=== PATIENT | female | born 1955 | race Caucasian/White ===

== ENCOUNTER → 2018-04-05 | Outpatient (CLI) | payer BC ==
[~2018-04-05] MED LIST: BP medication; Detrol; PRINVIL
== END ==
LOC: MC.RAD 15:40
DX: Z12.31 Encounter for screening mammogram for malignant neoplasm of breast (principal)

== ENCOUNTER → 2020-04-26 | Outpatient (CLI) | payer BC | LOC: MC.RAD 13:15 | DX: Z12.31 Encounter for screening mammogram for malignant neoplasm of breast (principal) ==

== ENCOUNTER 2020-05-24 09:45 | Day surgery (SDC) | payer BC ==
[~2020-05-24] VITALS: Ht 157.5 cm; Wt 104.6 kg
[2020-05-24] MEDS ORDERED: COZAAR100 MG PO (10:30)
[2020-05-24] MEDS ORDERED: DYAZIDE 25 MG-31 CAP PO (10:31)
[2020-05-24] MEDS ORDERED: AMOXICILLIN 8751 TAB PO (10:32)
[2020-05-24 11:37] VITALS: BP 147/77; PULSE 103; TEMP 98
[2020-05-24 12:30] VITALS: BP 140/62; PULSE 62; TEMP 97.5
--- NOTE | 2020-05-24 12:30 | NUR ---
TO RM 5 PER CART FROM ENDOSCOPY FOLLOWING AN ERCP. AMBULATED TO RECLINER WITH MINIMAL ASSIST. RECEIVED WATER AND TAKING SIPS. DENIES PAIN OR DISCOMFORT AT CURRENT TIME.
[2020-05-24 12:45] VITALS: BP 129/70; PULSE 56
--- NOTE | 2020-05-24 12:45 | NUR ---
REQUESTED SOMETHING WARM TO DRINK. PATIENT RECEIVED WARM TEA. PATIENT TAKING SIPS. DENIES ANY PAIN OR DISCOMFORT AT THIS TIME.
[2020-05-24 13:00] VITALS: BP 132/68; PULSE 56
--- NOTE | 2020-05-24 13:00 | NUR ---
PATIENT SEEMS TO BE CONTENT SIPPING ON HER WARM TEA.
[2020-05-24 13:15] VITALS: BP 142/72; PULSE 51
--- NOTE | 2020-05-24 13:15 | NUR ---
DR CRAFT INTO TALK WITH PATIENT OK'D TO BE DISCHARGED ANYTIME.
--- NOTE | 2020-05-24 13:30 | NUR ---
PATIENT CALLED BROTHER FOR RIDE HOME. RECEIVED DISCHARGE INSTRUCTIONS AND VERBALIZED UNDERSTANDING. DISCONTINUED IV AND INT- CATHETER INTACT.
--- NOTE | 2020-05-24 14:14 | NUR ---
DISCHARGED PER WC BY NURSING STAFF TO PRIVATE CAR IN CARE OF BROTHER HI.
[2020-05-28] MEDS ORDERED: PROBIOTIC FORMU1 CAP PO (13:20)
[2020-05-28] MEDS ORDERED: NATURAL ST. JO300 MG PO (13:20)
[2020-05-28] MEDS ORDERED: OMEGA-3 1000 MG1 CAP PO (13:20)
[2020-05-28] MEDS ORDERED: VITAMIN B COMPL IJ (13:21)
[2020-05-28] MEDS ORDERED: VITAMINC1000TA PO (13:21)
[2020-05-28] MEDS ORDERED: NATURAL ODORLE400 MG PO (13:23)
[2020-05-28] MEDS ORDERED: LIQUID CALCIUM1 SG3 PO (13:23)
[2020-05-28] MEDS ORDERED: VITAMIN D31000 I1 PO (13:23)
[2020-05-28] MEDS ORDERED: ASPIRIN E.C. 8181 MG PO (13:24)
[2020-05-28] MEDS ORDERED: GLUCOSAMINE & C1 CA2 PO (13:24)
[2020-05-28] MEDS ORDERED: PERCOCET 325 MG1 TA2 PO (17:01)
[2020-05-28] MEDS ORDERED: MOTRIN 600600 MG/TAB PO (17:01)
== END 2020-05-24 14:38 | disposition home or self-care (01) ==
LOC: SDCO 09:45
DX: K80.50 Calculus of bile duct without cholangitis or cholecystitis without obstruction (principal); K21.9 Gastro-esophageal reflux disease without esophagitis; I10 Essential (primary) hypertension; F41.9 Anxiety disorder, unspecified; Z20.828 Contact with and (suspected) exposure to other viral communicable diseases; M17.10 Unilateral primary osteoarthritis, unspecified knee; E66.01 Morbid (severe) obesity due to excess calories; Z68.41 Body mass index [BMI] 40.0-44.9, adult
CPT/HCPCS: C1769; J2704; J3010; J7030

== ENCOUNTER → 2021-06-17 | Outpatient (CLI) | payer BC ==
[~2021-06-17] MED LIST changes: +AMOXICILLIN 8751 TAB PO; +ASPIRIN E.C. 8181 MG PO; +COZAAR100 MG PO; +DYAZIDE 25 MG-31 CAP PO; +GLUCOSAMINE & C1 CA2 PO; +LIQUID CALCIUM1 SG3 PO; +MOTRIN 600600 MG/TAB PO; +NATURAL ODORLE400 MG PO; +NATURAL ST. JO300 MG PO; +OMEGA-3 1000 MG1 CAP PO; +PERCOCET 325 MG1 TA2 PO; +PROBIOTIC FORMU1 CAP PO; +VITAMIN B COMPL IJ; +VITAMIN D31000 I1 PO; +VITAMINC1000TA PO; +ZOFRAN ODT4 MG PO
== END ==
LOC: MC.RAD 16:00
DX: Z12.31 Encounter for screening mammogram for malignant neoplasm of breast (principal)

== ENCOUNTER → 2023-08-11 | Outpatient (CLI) | payer BC ==
[~2023-08-11] MED LIST changes: +PREDNISONE20 MG PO; +TESSALON PERLE200 MG PO
== END ==
LOC: MC.RAD 08:20
DX: Z12.31 Encounter for screening mammogram for malignant neoplasm of breast (principal)